=== PATIENT | male | born 1950 | race Caucasian/White ===

== ENCOUNTER → 2017-05-09 | Outpatient (CLI) | payer MEDICARE, OTHER ==
[~2017-05-09] MED LIST: ASPI325T32 PO; CARV3.12 PO; EZET1TAB50 PO; IODIXANOL LOCM 100 ML BTL ONE; MULT-762 PO; SOD CHLORIDE 0.9% 100 ML ONE
--- NOTE | 2017-05-10 09:11 | RADRPT ---
PROCEDURE: CT angiogram of the abdomen and pelvis with 3-D reconstructions CLINICAL INDICATION: AAA WITH REPAIR TECHNIQUE: CT angiogram of the abdomen and pelvis was performed on a multislice CT scanner . The patient was scanned after administration of intravenous contrast (95 cc of Visipaque 320). Sagittal and coronal reformatted images were obtained from the axial source images. 3D MIP reformatted image s were also created from the axial source images. DLP 1217.24 mGycm CTDI vol 19.72, 16.68 mGy One or more of the following dose reduction techniques were used: - Automated exposure control. - Adjustment of the mA and/or kV according to patient size. - Use of iterative reconstruction technique. COMPARISON: CTA abdomen/pelvis with lower extremity runoff from 02/01/2016 FINDINGS: ANGIOGRAM: There is no acute dissection of the abdominal aorta. The celiac is widely patent. There is mild narrowing at the origin of the SMA. There are single renal arteries bilaterally with severe narrowing at their origins. There is stable aneurysmal dilatation of the infrarenal aorta measures up to 3.5 x 3.2 cm on series 2, image 238 which is unchanged compared to the prior CTA from 02/01/2016. The aneurysm is noted to be status post Endograft repair without evidence of an endoleak. A focal outpouching is noted at the superior aspect of the aneurysm anteriorly, slightly to the right of midline measuring up to 7 mm, unchanged. The AMY origin is occluded, unchanged. Common, internal and external iliac arteries are patent bilaterally. Bilateral common femoral arteries as well as the proximal visualized superficial femoral and profund a arteries are widely patent. ANCILLARY: There is a sub-centimeter hypodensity in the right lobe of the liver which is too small to character ize, but is likely a cyst. There is a tiny fat - containing umbilical hernia. IMPRESSION: Stable 3.5 cm infrarenal aortic aneurysm status post Endograft repair without evidence of an endolea k. RPTAT: EE Physician René Date Time Electronically viewed and signed by Roque Figueroa Physician on 05/10/2017 09:10 RA/
== END | disposition home or self-care (01) ==
LOC: C/S 12:23
PROVIDERS: ATTEND Surgery Surgical Oncology
DX: I71.4 Abdominal aortic aneurysm, without rupture (principal); Z88.0 Allergy status to penicillin
CPT/HCPCS: 75635; Q9967